=== PATIENT | male | born 1950 | race Caucasian/White ===

== ENCOUNTER 2016-09-05 09:28 | Day surgery (SDC) | payer MEDICARE, MEDICAID ==
[~2016-09-05] VITALS: Ht 167.6 cm; Wt 110.0 kg
[2016-09-05] MEDS ORDERED: CYCLOPENTOLATE HCL 2% 2 ML OPHTHALMIC SOLUTION ONE (10:07)
[2016-09-05] MEDS ORDERED: TETRACAINE HCL/PF 0.5% 4 ML OPHTHALMIC SOLUTION ONE (10:07)
[2016-09-05] MEDS ORDERED: DICLOFENAC SODIUM 0.1% 2.5 ML OPHTHALMIC SOLUTION ONE (10:07)
[2016-09-05] MEDS ORDERED: MOXIFLOXACIN HCL 0.5% 3 ML OPHTHALMIC SOLUTION ONE (10:07)
[2016-09-05] MEDS ORDERED: PHENYLEPHRINE HCL 2.5% 2 ML OPHTHALMIC SOLUTION ONE (10:08)
[2016-09-05] MEDS ORDERED: RINGERS SOLUTION,LACTATED 500 ML IV ONE ×2 (10:09→11:15)
[2016-09-05] MEDS ORDERED: TETRACAINE HCL/PF 0.5% 4 ML OPHTHALMIC SOLUTION OS ONE (10:45)
[2016-09-05] MEDS ORDERED: ACETAMINOPHEN/CODEINE 300-30 MG TABLET PO PRN (10:45)
[2016-09-05] MEDS: PHENYLEPHRINE HCL 2.5% 2 ML OPHTHALMIC SOLUTION OS SCH ×3 (10:49→11:12)
[2016-09-05] MEDS: CYCLOPENTOLATE HCL 2% 2 ML OPHTHALMIC SOLUTION OS SCH ×3 (10:49→11:11)
[2016-09-05] MEDS: MOXIFLOXACIN HCL 0.5% 3 ML OPHTHALMIC SOLUTION OS SCH ×3 (10:50→11:10)
[2016-09-05] MEDS: DICLOFENAC SODIUM 0.1% 2.5 ML OPHTHALMIC SOLUTION OS SCH ×3 (10:50→11:12)
[2016-09-05 11:02] LABS: GLUCOSE COMMENT 1 Doctor Notified; GLUCOSE,POINT OF CARE 168 MG/DL (70-110)
[2016-09-05] MEDS ORDERED: LISI-662 PO (11:49)
[2016-09-05] MEDS ORDERED: ASA3 PO (11:49)
[2016-09-05] MEDS ORDERED: ATOR10TA84 PO (11:49)
[2016-09-05] MEDS ORDERED: OMEP20 PO (11:49)
[2016-09-05] MEDS ORDERED: SERT100T12 PO (11:49)
[2016-09-05] MEDS ORDERED: CANA100T PO (11:49)
[2016-09-05] MEDS ORDERED: PROP10 PO (11:49)
[2016-09-05] MEDS ORDERED: HUMLIS7525 SQ (11:49)
[2016-09-05] MEDS ORDERED: GABA-531 PO (11:49)
[2016-09-05] MEDS ORDERED: INSLAN SQ (11:49)
[2016-09-05] MEDS ORDERED: FentaNYL CITRATE-PF 100 MCG/2 ML VIAL IVP ONE (12:00)
[2016-09-05] MEDS ORDERED: MIDAZOLAM HCL 2 MG/2 ML VIAL IVP ONE (12:00)
[2016-09-05] MEDS ORDERED: AcetaZOLAMIDE 250 MG TABLET PO ONE (12:45)
[2016-09-05] MEDS ORDERED: AcetaZOLAMIDE 250 MG TABLET ONE (13:19)
[2016-09-05] MEDS ORDERED: LIDOCAINE HCL/PF 1% 2 ML VIAL IM ONE (17:30)
[2016-09-05] MEDS ORDERED: HYALURONATE SOD/CHONDROITIN SOD 0.5 ML VIAL IO ONE (17:30)
[2016-09-05] MEDS ORDERED: ACETYLCHOLINE CHLORIDE 1 EA INTRAOCULAR SOLUTION KIT IO ONE (17:30)
[2016-09-05] MEDS ORDERED: EPINEPHrine 1:1,000 [1 MG/ML] AMP IM ONE (17:30)
[2016-09-05] MEDS ORDERED: TETRACAINE HCL VISCOUS 0.5% 5 ML OPHTHALMIC SOLUTION OS ONE (17:30)
[2016-09-05] MEDS ORDERED: POVIDONE-IODINE 10% 15 ML SOLUTION UD TP ONE (17:30)
[2016-09-05] MEDS ORDERED: HYALURONATE SODIUM 12 MG/ML 0.8 ML SYRINGE IO ONE (17:30)
[2016-09-05] MEDS ORDERED: BRIMONIDINE TARTRATE 0.15% 5 ML OPHTHALMIC SOLUTION OS ONE (17:30)
== END 2016-09-05 13:45 | disposition home or self-care (01) ==
LOC: SURGERY 09:28
PROVIDERS: ATTEND Ophthalmology
DX: E11.36 Type 2 diabetes mellitus with diabetic cataract (principal); H25.12 Age-related nuclear cataract, left eye; E11.39 Type 2 diabetes mellitus with other diabetic ophthalmic complication; H40.9 Unspecified glaucoma; K21.9 Gastro-esophageal reflux disease without esophagitis; J44.9 Chronic obstructive pulmonary disease, unspecified; E66.01 Morbid (severe) obesity due to excess calories; I10 Essential (primary) hypertension; Z79.4 Long term (current) use of insulin; Z98.890 Other specified postprocedural states; Z87.01 Personal history of pneumonia (recurrent); Z86.19 Personal history of other infectious and parasitic diseases
CPT/HCPCS: 66183; 66984; 82962; 93005; C1780; C1783; J0171; J2250; J3010; J3490 ×2; J7120